=== PATIENT | male | born 1955 | race Hispanic/Latino ===

== ENCOUNTER → 2024-01-17 13:16 | Outpatient (REF) | payer OTHER, SELFPAY | LOC: DHCBC MAIN 13:16 | PROVIDERS: ATTENDING PHYSICIAN Internal Medicine Cardiovascular Disease | DX: I25.5 Ischemic cardiomyopathy (principal) | CPT/HCPCS: 93306 ==

== ENCOUNTER 2024-02-19 13:30 | Emergency (ER) | payer OTHER, SELFPAY ==
[2024-02-19 13:32] VITALS: BP 148/99
[2024-02-19 13:54] LABS: % Basophils 0.7 % (0-2); % Immature Granulocytes 0.3 % (0-0.5); % Lymphocytes 16.8 % (20.5-51.1); % Monocytes 12.5 % (1.7-9.3); % Neutrophils 66.7 % (42.2-75.2); Absolute Basophils 0.1 10^3/uL (0-0.2); Absolute Eosinophils 0.2 10^3/uL (0-0.7); Absolute Lymphocytes 1.2 10^3/uL (1.2-3.4); Absolute Monocytes 0.9 10^3/uL (0.1-0.6); Absolute Neutrophils 4.6 10^3/uL (1.4-6.5); Hematocrit 44.7 % (39.0-52.0); Hemoglobin 14.9 g/dL (13.0-18.0); Mean Corp Hgb Conc. 33.3 g/dL (33.0-37.0); Mean Corpuscular Hgb 28.5 pg (27.0-31.0); Mean Corpuscular Volume 85.5 fL (80.0-94.0); Mean Platelet Volume 10.2 fL (7.4-10.4); Nucleated Red Blood Cells % 0 % (-); Platelet Count 175 10^3/uL (130-400); Red Blood Cell Count 5.23 10^6/uL (4.70-6.10); Red Cell Dist. Width 14.9 % (11.5-14.5)
[2024-02-19 14:03] LABS: INR 1.23; PT 15.3 Sec (11.4-14.6)
[2024-02-19 14:04] LABS: APTT 34.3 Sec (23.4-35.0)
[2024-02-19 14:06] LABS: ALT (SGPT) 38 U/L (0-50); AST (SGOT) 34 U/L (17-59); Albumin 4.1 g/dl (3.5-5.0); Alkaline Phosphatase 103 U/L (38-126); Blood Urea Nitrogen 91 mg/dl (9-20); Calcium 9.1 mg/dl (8.4-10.2); Carbon Dioxide 26 mmol/L (22-30); Chloride 104 mmol/L (98-107); Glucose 73 mg/dl (70-99); Potassium 4.6 mmol/L (3.5-5.1); Sodium 137 mmol/L (135-145); Total Bilirubin 0.7 mg/dl (0.2-1.3); Total Protein 7.2 g/dl (6.3-8.2); eGFR 26.05
[2024-02-19 14:22] LABS: Troponin I 0.036 ng/ml
[2024-02-19 15:00] VITALS: BP 150/102
--- NOTE | 2024-02-19 15:24 | ED.GENMED ---
History of Present Illness
General
Chief Complaint: Chest Pain
Time Seen by Provider: 02/19/24 14:50
Travel History
Have you had any contact with someone who has COVID-19?: No
Do you have any symptoms of coronavirus? Fever > 100 degrees, chills, cough, shortness of breath, sore throat, loss of taste or smell, muscle aches, or headache?: No
History of Present Illness
History of Present Illness:
Patient presents emergency department with sharp centralized chest pain. Pain has been ongoing for 2 weeks. Pain is nonexertional. He associates pain with being shocked by his AICD 2 weeks ago. Endorses chronically labile blood pressures.
States that he is unable to take his full blood pressure medication otherwise he gets hypotensive and lightheaded. Denies any leg swelling. Endorses compliance with Eliquis.
Past History
Past History
ED Past Medical History: CAD, GERD, HTN, Hypercholesterolemia, [place], Psychiatric (Anxiety) and Other (gout)
ED Past Surgical History: Cardiac (PTCA with stent 2006 and again 2012)
Social History
Tobacco: Non-smoker
Alcohol: None
Drug: None
Personal:
Living: with family
Employment: Employed
Family History
Family History: Other (Noncontributory)
Phy Exam
Physical Exam
Physical Exam:
GENERAL APPEARANCE: NAD, well developed/ well nourished
EYES lids/conjunctiva normal
EARS/NOSE/THROAT Mucous membranes moist, uvula midline without oral pharyngeal erythema, exudate or swelling
HEAD/NECK normocephalic atraumatic, neck is supple.
RESPIRATORY respiratory effort normal, speaks in full sentences, no accessory muscle use. Lungs clear to auscultation without rhonchi, wheezes, rales
CARDIAC AICD pocket wnl, no ttp, irregular rhythm/rate, no edema.
ABDOMINAL Soft, ND/NT. No pulsatile masses on exam, rebound tenderness, Layton sign or pain over Mcburney's point.
MUSCLES/EXTREMITIES No abnormal range of motion, no swelling.
SKIN Warm, pink and dry. No rashes
NEUROLOGICAL Speech is clear and appropriate. Normal level of consciousness. 5/5 strength in all extremities.
PSYCH Normal mood and affect. Judgement/competence is appropriate
Scores
Heart Score for Chest Pain Patients
STEMI patient?: Not applicable
Course
Orders/Labs/Results
Orders:
Orders
02/19/24 13:34
Electrocardiogram (*1) Urgent
Reason for Study: Chest Pain
EKG- Treatment ONCE
02/19/24 13:42
Complete Blood Count/With Diff Urgent
Comprehensive Metabolic Panel Urgent
Protime/PTT Urgent
Troponin I Urgent
02/19/24 15:26
CXR2 [CR Chest - 2 Views ] Stat
Comment:
Reason For Exam: chest pain
02/19/24 17:22
Troponin I Urgent
Abnormal Lab Results
02/19/24
13:42
RDW 14.9 H %
(11.5-14.5)
Absolute Monos (auto) 0.9 H 10^3/uL
(0.1-0.6)
Lymphocytes % 16.8 L %
(20.5-51.1)
Monocytes % 12.5 H %
(1.7-9.3)
PT 15.3 H Sec
(11.4-14.6)
BUN 91 H mg/dl
(9-20)
Creatinine 2.6 H mg/dL
(0.7-1.3)
Troponin I 0.036 H* ng/ml
02/19/24 13:42
02/19/24 13:42
Vital Signs
Initial and Last Documented VS:
Initial Vital Signs
Temp Pulse Resp BP Pulse Ox
98.2 F 84 18 148/99 99
02/19/24 13:32 02/19/24 13:32 02/19/24 13:32 02/19/24 13:32 02/19/24 13:32
Last Documented Vital Signs
Temp Pulse Resp BP Pulse Ox
98.2 F 66 20 146/107 100
02/19/24 13:32 02/19/24 18:30 02/19/24 18:15 02/19/24 18:00 02/19/24 18:30
*Critical Care Note
Total Time (30-74mins, 75-104mins- exclusive of procedures): Not Applicable
Update Note
Update Note:
troponinemia in the setting of CKD
ED Attending Note
ED Attending Note
ED Attending Note:
Atypical chest pain. Do not suspect PE as patient is on Eliquis. Pain has been going on for weeks. Delta troponin is negative. Reviewed patient's AICD record. There have been no recent shocks delivered since his episode at the end of December.
-
Portions of this chart may have been created with voice recognition software.� Occasional wrong word or��sound alike� substitutions may have occurred due to the inherent limitations of voice recognition software.
Discharge Plan
Departure
Patient Disposition: Home (Routine Discharge)
Date of Disposition: 02/19/24
Time of Disposition: 18:40
Patient with high blood pressure during this ER visit?: Yes
Discharge Problem:
Chest pain
Prescriptions:
No Action
aspirin 81 MG tablet,delayed release (DR/EC)
81 mg PO DAILY
nitroglycerin 0.4 MG tablet, sublingual
0.4 mg sublingual [id number] PRN (Reason: chest pain ) Qty: 60 2RF
fluoxetine 20 MG capsule
20 mg PO DAILY Qty: 0
carvedilol 12.5 MG tablet
12.5 mg PO BID Qty: 60 3RF
Rx Instructions:
this is an increased dose
atorvastatin 40 MG tablet
40 mg PO HS
hydralazine 10 MG tablet
10 mg PO BID
allopurinol 100 MG tablet
100 mg PO DAILY
colchicine 0.6 MG tablet
0.6 mg PO DAILY
apixaban [Eliquis] 5 MG tablet
5 mg PO BID
isosorbide mononitrate 30 MG tablet extended release 24 hr
30 mg PO DAILY Qty: 30 0RF
tamsulosin 0.4 MG capsule
0.4 mg PO DAILY Qty: 30 0RF
pantoprazole 40 MG tablet,delayed release (DR/EC)
40 mg PO BID Qty: 60 0RF
ferrous sulfate [FeroSul] 325 MG tablet
325 mg PO DAILY Qty: 30 0RF
finasteride 5 MG tablet
5 mg PO DAILY Qty: 30 0RF
furosemide 20 MG tablet
60 mg PO DAILY Qty: 90 0RF
potassium chloride 20 MEQ tablet extended release
20 meq PO DAILY Qty: 30 0RF
magnesium oxide 400 MG tablet
400 mg PO DAILY Qty: 30 0RF
Referrals:
PRIVATE,PHYSICIAN [Family Provider] -
Activity Restrictions/Additional Instructions:
follow up with your culinary chef for evaluation in the next few days
return to ER with new or worsening symptoms
Interventions
Interventions:
*Risk Screen - Suicide Last Done: 02/19/24 13:32
*General Assessment Last Done: 02/19/24 13:32
*Neglect/Abuse Screening Last Done: 02/19/24 13:32
*ED COVID-19 Vaccine History Last Done: 02/19/24 13:32
*Nursing Disposition Last Done: 02/19/24 18:43
ED- Cardiac Assessment Last Done: 02/19/24 16:39
Discharge Date and Time
Discharge Date/Time: 02/19/24 18:46
Print Language: [place]
[2024-02-19 16:00] VITALS: BP 150/83
[2024-02-19 17:00] VITALS: BP 143/89
[2024-02-19 18:00] VITALS: BP 146/107
== END 2024-02-19 18:46 | disposition home or self-care (01) ==
LOC: EMR 13:30
PROVIDERS: Emergency Medicine; EMERGENCY PHYSICIAN Emergency Medicine
DX: R07.9 Chest pain, unspecified (principal); N18.9 Chronic kidney disease, unspecified; I12.9 Hypertensive chronic kidney disease with stage 1 through stage 4 chronic kidney disease, or unspecified chronic kidney disease; Z95.810 Presence of automatic (implantable) cardiac defibrillator; Z79.01 Long term (current) use of anticoagulants
CPT/HCPCS: 99285; 71046; 80053; 84484; 85025; 85610; 85730; 93005

== ENCOUNTER 2024-03-10 06:05 | Day surgery (SDC) | payer OTHER, SELFPAY ==
[2024-03-10] VITALS (21 sets, daily range): BP systolic 115–148; BP diastolic 70–110; BMI 25.4
[2024-03-10] MEDS: LOW STRENGTH ASPIRIN 81 MG PO (07:08)
[2024-03-10] MEDS: NSS 218 ML IV (07:09)
[2024-03-10 08:40] LABS: ACT-LR - POC 120 Seconds (116-155)
--- NOTE | 2024-03-10 08:53 | ITS.CL.CATH ---
[facility] - Catheterization
Cardiac Catheterization
Procedure Report:
CARDIAC CATHETERIZATION REPORT
Date of Procedure: 03/10/2024
Referring: Khanh Lopez MD
Indication: Angina with known CAD and history ICD discharge
HEMODYNAMIC DATA
AO: 143/82
LV: 143/25
LEFT VENTRICULOGRAPHY: Not done due to creatinine 2.5
CORONARY ANGIOGRAPHY
Dominance: Right
Left Main: Normal
LAD: 20% proximal LAD stenosis with 20% LAD stenosis distal to the takeoff of the first septal [employer]. There is a widely patent mid LAD stent spanning the takeoff of the large second diagonal branch. There is 30% stenosis in the LAD distal to
the small D3. The large second septal [employer] has 70% proximal stenosis and this lesion is actually angiographically improved compared with the prior study from 2013.
Circumflex: The mid circumflex has a stent placed in 2013 which is diffusely restenosed. OM1 is a medium sized branch which arises from the proximal circumflex and has 30% mid stenosis. OM 2 which was treated with balloon angioplasty and 2013 (
[facility]) is occluded at its origin just distal to the stent in the mid circumflex. The circumflex terminates with a small OM 3.
RCA: The RCA has severe multisegment disease. There are tandem 90% proximal RCA stenoses. There is subtotal (versus total with bridging collaterals) occlusion of the mid RCA just proximal to a previously placed stent (2012). There is sluggish
flow through the stented segment and very diffuse and severe mid and distal RCA disease. There is faint and incomplete filling of the PDA and posterolateral vessels. The RPDA fills via several collaterals from the second septal [employer] guidance [employer] and
there is collateral filling of the RPL via collaterals from a very large first diagonal branch of the LAD
Closure Device: None. The procedure was performed via the right femoral artery as we opted not to use the radial artery given his likelihood of needing a fistula in the next year or 2. Angiography shows the femoral puncture site to be too close to
the femoral bifurcation for safe use of an Angio-Seal. Manual pressure was used for hemostasis
Radiation (mGy):169
DAP (cm2.Gy): 11.8
Fluoro time: 1.9 min
CONCLUSIONS
1: Elevated LVEDP
2: Severe double vessel CAD as described. I see no role for PCI.
3. Continue medical therapy for CAD and LV dysfunction.
4. Total contrast 20ml visipaque
Copy to: Khanh Lopez MD, Modesto Garner MD
Khanh Lopez MD, FAC, [facility]
[2024-03-10] MEDS: ZOFRAN 4 MG IV (08:58)
[2024-03-10] MEDS: NSS 1000 IV (09:45)
[2024-03-10] MEDS: TYLENOL 650 MG PO (11:18)
--- NOTE | 2024-03-10 16:30 | W.PN.UPDATE ---
Update Note
Progress Note Update
Called pt re: labwork for next week. Order sent to [facility] through the cardiology office for BMP next 03/14. Spoke with and she understands to bring pt for labs on 03/14. Baseline creat 2.5.
== END 2024-03-10 12:35 | disposition home or self-care (01) ==
LOC: CATH 06:05
PROVIDERS: ATTENDING PHYSICIAN Internal Medicine Cardiovascular Disease
DX: I25.119 Atherosclerotic heart disease of native coronary artery with unspecified angina pectoris (principal); Z95.5 Presence of coronary angioplasty implant and graft; I48.21 Permanent atrial fibrillation; I12.9 Hypertensive chronic kidney disease with stage 1 through stage 4 chronic kidney disease, or unspecified chronic kidney disease; N18.4 Chronic kidney disease, stage 4 (severe); E78.5 Hyperlipidemia, unspecified; I08.1 Rheumatic disorders of both mitral and tricuspid valves; Z95.810 Presence of automatic (implantable) cardiac defibrillator; Z79.82 Long term (current) use of aspirin; Z79.01 Long term (current) use of anticoagulants; Z79.84 Long term (current) use of oral hypoglycemic drugs
CPT/HCPCS: 93458; C1894; Q9967

== ENCOUNTER → 2025-06-05 10:38 | Outpatient (REF) | payer OTHER, SELFPAY ==
[2025-06-05 15:44] LABS: INR 3.49; PT 34.8 Sec (11.4-14.6)
== END ==
LOC: HWLAB 10:38
PROVIDERS: ATTENDING PHYSICIAN Student in an Organized Health Care Education/Training Program
DX: I48.21 Permanent atrial fibrillation (principal)
CPT/HCPCS: 36415; 85610

== ENCOUNTER → 2025-06-11 13:36 | Outpatient (REF) | payer OTHER, SELFPAY ==
[2025-06-11 16:28] LABS: PT 49.1 Sec (11.4-14.6)
[2025-06-11 17:23] LABS: INR 5.50
== END ==
LOC: HWLAB 13:36
PROVIDERS: ATTENDING PHYSICIAN Student in an Organized Health Care Education/Training Program; FAMILY PHYSICIAN Family Medicine
DX: I48.21 Permanent atrial fibrillation (principal)
CPT/HCPCS: 36415; 85610

== ENCOUNTER → 2025-07-13 11:39 | Outpatient (REF) | payer OTHER, SELFPAY ==
[2025-07-13 15:50] LABS: Hematocrit 44.0 % (39.0-52.0); Hemoglobin 14.0 g/dL (13.0-18.0); Mean Corp Hgb Conc. 31.8 g/dL (33.0-37.0); Mean Corpuscular Volume 90.7 fL (80.0-94.0); Nucleated Red Blood Cells % 0 % (-); Platelet Count 160 10^3/uL (130-400); Red Cell Dist. Width 13.9 % (11.5-14.5)
[2025-07-13 16:01] LABS: APTT 33.7 Sec (23.4-35.0); INR 2.23; PT 24.8 Sec (11.4-14.6)
[2025-07-13 16:08] LABS: ALT (SGPT) 26 U/L (0-50); AST (SGOT) 27 U/L (17-59); Albumin 4.3 g/dl (3.5-5.0); Alkaline Phosphatase 79 U/L (38-126); Blood Urea Nitrogen 71 mg/dl (9-20); Calcium 8.8 mg/dl (8.4-10.2); Carbon Dioxide 28 mmol/L (22-30); Chloride 104 mmol/L (98-107); Glucose 101 mg/dl (70-99); Potassium 4.0 mmol/L (3.5-5.1); Sodium 141 mmol/L (135-145); Total Protein 7.0 g/dl (6.3-8.2); eGFR 24.59
== END ==
LOC: HWLAB 11:39
PROVIDERS: ATTENDING PHYSICIAN Specialist; FAMILY PHYSICIAN Family Medicine
DX: N18.4 Chronic kidney disease, stage 4 (severe) (principal); I48.21 Permanent atrial fibrillation
CPT/HCPCS: 36415; 80053; 82570; 83970; 84100; 84156; 85025; 85610; 85730

== ENCOUNTER → 2025-07-20 08:55 | Outpatient (REF) | payer OTHER, SELFPAY ==
[2025-07-20 12:26] LABS: INR 2.05; PT 23.2 Sec (11.4-14.6)
[2025-07-20 12:36] LABS: Vitamin D, 25-OH*** 43.7 ng/mL (30-80)
== END ==
LOC: HWLAB 08:55
PROVIDERS: ATTENDING PHYSICIAN Student in an Organized Health Care Education/Training Program; FAMILY PHYSICIAN Family Medicine
DX: I48.21 Permanent atrial fibrillation (principal); N18.4 Chronic kidney disease, stage 4 (severe); I13.10 Hypertensive heart and chronic kidney disease without heart failure, with stage 1 through stage 4 chronic kidney disease, or unspecified chronic kidney disease; I25.5 Ischemic cardiomyopathy; I12.9 Hypertensive chronic kidney disease with stage 1 through stage 4 chronic kidney disease, or unspecified chronic kidney disease
CPT/HCPCS: 36415; 82306; 85610

== ENCOUNTER → 2025-07-30 10:33 | Outpatient (REF) | payer OTHER, SELFPAY ==
[2025-07-30 12:02] LABS: INR 1.94; PT 22.3 Sec (11.4-14.6)
== END ==
LOC: HWLAB 10:33
PROVIDERS: ATTENDING PHYSICIAN Student in an Organized Health Care Education/Training Program; FAMILY PHYSICIAN Family Medicine
DX: I48.21 Permanent atrial fibrillation (principal)
CPT/HCPCS: 36415; 85610

== ENCOUNTER → 2025-08-06 13:44 | Outpatient (REF) | payer OTHER, SELFPAY ==
[2025-08-06 15:47] LABS: INR 1.97; PT 22.6 Sec (11.4-14.6)
== END ==
LOC: HWLAB 13:44
PROVIDERS: ATTENDING PHYSICIAN Student in an Organized Health Care Education/Training Program; FAMILY PHYSICIAN Family Medicine
DX: I48.21 Permanent atrial fibrillation (principal)
CPT/HCPCS: 36415; 85610

== ENCOUNTER → 2025-08-13 10:47 | Outpatient (REF) | payer OTHER, SELFPAY ==
[2025-08-13 16:27] LABS: INR 1.05; PT 14.0 Sec (11.4-14.6)
== END ==
LOC: HWLAB 10:47
PROVIDERS: ATTENDING PHYSICIAN Student in an Organized Health Care Education/Training Program; FAMILY PHYSICIAN Family Medicine
DX: I48.21 Permanent atrial fibrillation (principal)
CPT/HCPCS: 36415; 85610

== ENCOUNTER → 2025-08-20 11:30 | Outpatient (REF) | payer OTHER, SELFPAY ==
[2025-08-20 14:46] LABS: INR 1.57; PT 19.0 Sec (11.4-14.6)
== END ==
LOC: HWLAB 11:30
PROVIDERS: ATTENDING PHYSICIAN Student in an Organized Health Care Education/Training Program; FAMILY PHYSICIAN Family Medicine
DX: I48.21 Permanent atrial fibrillation (principal)
CPT/HCPCS: 36415; 85610

== ENCOUNTER → 2025-08-27 11:13 | Outpatient (REF) | payer OTHER, SELFPAY ==
[2025-08-27 12:45] LABS: INR 2.50; PT 27.0 Sec (11.4-14.6)
== END ==
LOC: HWLAB 11:13
PROVIDERS: ATTENDING PHYSICIAN Student in an Organized Health Care Education/Training Program
DX: I48.21 Permanent atrial fibrillation (principal)
CPT/HCPCS: 36415; 85610

== ENCOUNTER → 2025-09-07 11:01 | Outpatient (REF) | payer OTHER, SELFPAY ==
[2025-09-07 18:17] LABS: INR 1.39; PT 17.3 Sec (11.4-14.6)
== END ==
LOC: HWLAB 11:01
PROVIDERS: ATTENDING PHYSICIAN Student in an Organized Health Care Education/Training Program; FAMILY PHYSICIAN Family Medicine
DX: I48.21 Permanent atrial fibrillation (principal)
CPT/HCPCS: 36415; 85610